=== PATIENT | female | born 2000 | race Caucasian/White ===

== ENCOUNTER 2019-08-13 18:28 | Emergency (ER) | payer MEDICAID ==
[~2019-08-13] VITALS: Ht 157.5 cm; Wt 127.5 kg
[2019-08-13 21:25] VITALS: BP 135/60
--- NOTE | 2019-08-13 21:59 | PHYS DOC ---
Past History Past Medical History: No Pertinent History Adult General Chief Complaint Chief Complaint: TEST [facility] Patient is a 18-year-old female who presents to the emergency department for evaluation. She states she has no complaint except that she needs to confirm her . She states her LMP was mid-June, and she had 2 home tests over the past 2 days which were positive. However, she states that prior to her first she had some home tests which were positive and her initial tests in the doctor's office were negative. She does admit to some breast soreness, and generalized fatigue, but denies any abdominal pain, but does admit to some nausea. She has not had any vaginal bleeding or discharge. There are no alleviating or exacerbating factors to her symptoms. Review of Systems Review of Systems Constitutional: Denies fever or chills [] Eyes: Denies change in visual acuity, redness, or eye pain [] HENT: Denies nasal congestion or sore throat [] Respiratory: Denies cough or shortness of breath [] Cardiovascular: No additional information not addressed in HPI [] GI: Denies abdominal pain, nausea, vomiting, bloody stools or diarrhea [] : Denies dysuria or hematuria, vaginal bleeding or discharge. [] Musculoskeletal: Denies back pain or joint pain [] Integument: Denies rash or skin lesions [] Neurologic: Denies headache, focal weakness or sensory changes [] Physical Exam Physical Exam PHYSICAL EXAM: CONSTITUTIONAL: Well developed, well nourished HEAD: normocephalic, atraumatic EENT: PERRL, EOMI. Conjunctivae normal color, sclerae non-icteric; moist mucous membranes. NECK: Supple, non-tender; no meningismus. LUNGS: Lungs CTA, breathing even and unlabored. Normal air movement. HEART: Regular rate and rhythm, no murmur CHEST: No deformity; non-tender ABDOMEN: The abdomen is soft, and non-tender, no masses or bruits. EXTREM: Normal ROM; no deformity, no calf tenderness. Normal pulses palpable in all extremities. There is no pedal edema. SKIN: No rash; no diaphoresis NEURO: Alert; normal speech and cognition; CN's grossly intact; strength grossly intact without focal deficit. BACK: No CVA TTP. Current Patient Data Lab Results Laboratory Tests Test 08/13/19 21:24 08/13/19 22:00 Bedside Urine HCG, Qualitative hcg negative Serum Test, Qualitative Negative Laboratory Tests Test 08/13/19 21:24 POC Urine HCG, Qualitative hcg negative (Negative) EKG EKG [] Radiology/Procedures Radiology/Procedures [] Course & Med Decision Making Course & Med Decision Making Initial urine test is negative. Given the patient's stated history, I do question a false negative, and a blood test will be performed. Dragon Disclaimer Dragon Disclaimer This electronic medical record was generated, in whole or in part, using a voice recognition dictation system. Departure Departure: Impression: Primary Impression: Amenorrhea Disposition: HOME, SELF-CARE Condition: STABLE Additional Instructions: follw up with Dr Estrada, [employer], at [phone], for further evaluation and treatment. APPLE SELLERS MD Aug 13, 2019 21:59
[2019-08-13 22:26] LABS: PREG TEST PT QUAL NEGATIVE (NEG)
== END 2019-08-13 22:37 | disposition home or self-care (01) ==
LOC: ER 18:28
DX: N91.2 Amenorrhea, unspecified (principal); Z32.02 Encounter for pregnancy test, result negative
CPT/HCPCS: 81025; 84703; 99283

== ENCOUNTER 2020-02-12 18:58 | Emergency (ER) | payer OTHER, MEDICAID ==
[~2020-02-12] VITALS: Ht 157.5 cm; Wt 117.0 kg
--- NOTE | 2020-02-12 19:01 | PHYS DOC ---
Past History Past Medical History: No Pertinent History, Fibromyalgia Additional Past Medical Histor: RUPTURED DISKS, RIGHT HIP DISPLAGIA,PLANTAR FACAITIS Past Surgical History: Alcohol Use: Occasionally Drug Use: Marijuana General Adult HPI: HPI: ".. I got bad plantar fasciitis in my right foot... I have been to a senior designer... He gave me some pain meds but stated I probably need surgery in his right foot... He also had me wear this boot which I have been wearing at work.. But I was on my feet all day today at [employer].. " Patient is a 19 year old female who presents with above hx and complaints of exacerbation of Rt foot plantar fasciitis. Distal neurovascular is equal to left foot. Does have increased tenderness in the arch area medial side of the foot on palpation. Patient denies any recent ballistic type injury but has had prolonged standing at work. Patient requesting a work excuse until she can follow back up with her senior designer and pain meds. Patient is not driving herself. No history of immunosuppression. No travel recently outside the [place] area. Review of Systems: Review of Systems: Constitutional: Denies fever or chills Eyes: Denies change in visual acuity HENT: Denies nasal congestion or sore throat Respiratory: Denies cough or shortness of breath Cardiovascular: Denies chest pain or edema GI: Denies abdominal pain, nausea, vomiting, bloody stools or diarrhea : Denies dysuria Musculoskeletal: Complains of right foot plantar fasciitis Integument: Denies rash Neurologic: Denies headache, focal weakness or sensory changes Endocrine: Denies polyuria or polydipsia Lymphatic: Denies swollen glands Psychiatric: Denies depression or anxiety Heart Score: Risk Factors: Risk Factors: DM, Current or recent (<one month) smoker, HTN, HLP, family history of CAD, obesity. Risk Scores: Score 0 - 3: 2.5% MACE over next 6 weeks - Discharge Home Score 4 - 6: 20.3% MACE over next 6 weeks - Admit for Clinical Observation Score 7 - 10: 72.7% MACE over next 6 weeks - Early Invasive Strategies Family History: Family History: Noncontributory Current Medications: Current Meds: See nursing for home medications Allergies: Allergies: Allergies Coded Allergies Type Severity Reaction Last Updated Verified No Known Drug Allergies 08/14/19 No Physical Exam: PE: Constitutional: Moderate acute distress, non-toxic appearance. [] HENT: Normocephalic, atraumatic, bilateral external ears normal, oropharynx moist, no oral exudates, nose normal. [] Eyes: PERRLA, EOMI, conjunctiva normal, no discharge. [] Neck: Normal range of motion, no tenderness, supple, no stridor. [] Cardiovascular:Heart rate regular rhythm, no murmur [] Lungs & Thorax: Bilateral breath sounds clear to auscultation [] Abdomen: Bowel sounds normal, soft, no tenderness, no masses, no pulsatile masses. Obese. Old surgery scars Skin: Warm, dry, no erythema, no rash. [] Back: No tenderness, no CVA tenderness. [] Extremities: No tenderness, no cyanosis, no clubbing, ROM intact, no edema. [] Except the findings in right foot as per HPI Neurologic: Alert and oriented X 3, normal motor function, normal sensory function, no focal deficits noted. [] Psychologic: Affect anxious l, judgement normal, mood normal. [] EKG: EKG: [] Radiology/Procedures: Radiology/Procedures: [] Course & Med Decision Making: Course & Med Decision Making Pertinent Labs and Imaging studies reviewed. (See chart for details) Patient to wear her orthopedic boot. Patient to follow-up with her senior designer. Patient use ice packs as needed. Take Tylenol and ibuprofen for pain. The patient may take Vicoprofen up to 4 times a day for marked pain [] Impression: 1. Right foot plantar fasciitis-pain exacerbation Carlos Disclaimer: Carlos Disclaimer: This electronic medical record was generated, in whole or in part, using a voice recognition dictation system. Departure Departure: Disposition: HOME/RESIDENCE PRIOR TO ADM Condition: STABLE Referrals: PCP,NO (PCP) Scripts Hydrocodone/Ibuprofen (HYDROCODONE-IBUPROFEN 7.5-200 ) 1 Each Tablet 1 TAB PO PRN Q6HRS PRN for PAIN, #30 TAB 0 Refills Prov: NENITA COOK MD 02/12/20 Carlos Disclaimer This chart was dictated in whole or in part using Voice Recognition software in a busy, high-work load, and often noisy Emergency Department environment. It may contain unintended and wholly unrecognized errors or omissions. NENITA COOK MD Feb 12, 2020 19:01
[2020-02-12 19:42] LABS: BARBITURATES NEG (NEG); BENZODIAZEPINES NEG (NEG); CANNABINOIDS NEG (NEG); COCAINE NEG (NEG); METHADONE NEG (NEG); OPIATES NEG (NEG); PHENCYCLIDINE NEG (NEG)
[2020-02-12 19:43] LABS: BILIRUBIN,URINE NEG (NEG); CLARITY,URINE HAZY; COLOR,URINE YELLOW; GLUCOSE,URINE NEG (NEG); NITRITE,URINE NEG (NEG); UROBILINOGEN,URINE 0.2 mg/dL (0.2 mg/dL)
[2020-02-12 19:44] LABS: BACTERIA,URINE FEW /HPF (0-FEW); SQUAMOUS EPITHELIAL CELL,UR MOD /LPF
[2020-02-12 19:45] LABS: AMPHETAMINE/METHAMPHETAMINE NEG (NEG)
[2020-02-12] MEDS ORDERED: HYDR-1179 PO (19:46)
== END 2020-02-12 19:55 | disposition home or self-care (01) ==
LOC: ER 18:58
DX: M72.2 Plantar fascial fibromatosis (principal); M79.671 Pain in right foot; M79.7 Fibromyalgia
CPT/HCPCS: 36415; 80307; 81001; 81025; 99283

== ENCOUNTER 2021-01-26 21:03 | Emergency (ER) | payer OTHER, MEDICAID ==
[~2021-01-26] VITALS: Ht 157.5 cm; Wt 112.0 kg
[~2021-01-26 21:03] MED LIST: HYDR-1179 PO
--- NOTE | 2021-01-26 21:05 | PHYS DOC ---
Past History Past Medical History: No Pertinent History, Fibromyalgia Additional Past Medical Histor: RUPTURED DISKS, RIGHT HIP DISPLAGIA,PLANTAR FASCIITIS Past Surgical History: Past Surgical History Complicated with excessive bleeding Alcohol Use: Occasionally Drug Use: Marijuana General Adult HPI: HPI: " I ve had back pain for ever.. it just seems worse tonight... " Patient is a 20 year old female who presents with above hx and complaints of mid back and bilateral sciatic pain.. Patient has a past history of somewhat chronic sciatica and back pain. No specific injury. No history of recent injury. No history of travel. No history of fever or chills. No history of problems with defecation or urination. Patient has had previous evaluations which did not show specific etiology. Patient denies any history immunosuppression. Pain is worse with flexion and [id number] movements. Psych affect pain is elicited with straight leg lifts. Pt. follows with Dr. Garg as primary. Review of Systems: Review of Systems: Constitutional: Denies fever or chills Eyes: Denies change in visual acuity HENT: Denies nasal congestion or sore throat Respiratory: Denies cough or shortness of breath Cardiovascular: Denies chest pain or edema GI: Denies abdominal pain, nausea, vomiting, bloody stools or diarrhea : Denies dysuria Musculoskeletal: Complaints exacerbation of chronic back pain and bilateral hip joint pain and/or sciatica Integument: Denies rash Neurologic: Denies headache, focal weakness or sensory changes Endocrine: Denies polyuria or polydipsia Lymphatic: Denies swollen glands Psychiatric: Denies depression or anxiety Family History: Family History: Noncontributory to presentation Current Medications: Current Meds: See nursing for home meds Allergies: Allergies: Allergies Coded Allergies Type Severity Reaction Last Updated Verified No Known Drug Allergies 08/14/19 No Physical Exam: PE: Constitutional: Moderate acute distress, non-toxic appearance. [] HENT: Normocephalic, atraumatic, bilateral external ears normal, oropharynx moist, no oral exudates, nose normal. [] Eyes: PERRLA, EOMI, conjunctiva normal, no discharge. [] Neck: Normal range of motion, no tenderness, supple, no stridor. [] Cardiovascular:Heart rate regular rhythm, no murmur [] Lungs & Thorax: Bilateral breath sounds clear to auscultation [] Abdomen: Bowel sounds normal, soft, no tenderness, no masses, no pulsatile masses. Obese. Old surgical scar Skin: Warm, dry, no erythema, no rash. [] Back: Mid back at T12/L1 tenderness, no CVA tenderness. Does have findings of muscle spasm on paraspinal area. No midline tenderness to percussion. Straight leg lift exacerbates low back pain. Extremities: No tenderness, no cyanosis, no clubbing, ROM intact, no edema. [] Neurologic: Alert and oriented X 3, normal motor function, normal sensory function, no focal deficits noted. DTRs +2 patella and brachial. Fusing Machine Operator equal. Is ambulatory. Psychologic: Affect anxious, judgement normal, mood normal. [] EKG: EKG: [] Radiology/Procedures: Radiology/Procedures: [][address] [address] IMAGING REPORT Signed PATIENT: REYNOLD ENCARNACION ACCOUNT: [id number] : 2000 LOCATION: ER AGE: 20 SEX: F EXAM STATUS: REG ER ORD. PHYSICIAN: NENITA COOK MD REASON: severe intractable pain PROCEDURE: CT THORACIC SPINE WO CONTRAST Exam: CT the thoracic and lumbar spine without contrast INDICATION: Severe intractable pain TECHNIQUE: Sequential axial images through the thoracic and lumbar spine obtained without IV contrast. Sagittal and coronal reformatted images were reconstructed from the axial data and reviewed. Comparisons: None FINDINGS: Thoracic spine: Vertebral body heights and alignment are well-maintained. Fracture to the thoracic spine is not identified. No significant spondylotic change in the thoracic spine. Visualized paraspinal soft tissues are unremarkable. Lumbar spine: Vertebral body heights and alignment are well-maintained. Fracture to the lumbar spine is not identified. No significant spondylotic change in the lumbar spine. Visualized paraspinal soft tissues are unremarkable. IMPRESSION: 1. Negative CT thoracic spine for acute traumatic injury. 2. Negative CT lumbar spine for acute traumatic injury. 3. No significant spondylotic change identified in the thoracic and lumbar spine Exposure: One or more of the following in the visualized dose reduction techniques were utilized for this examination: 1. Automated exposure control 2. Adjustment of the MA and/or KV according to patient size 3. Use of iterative of reconstructive technique Electronically signed by: Aidan Garza MD (01/26/2021 10:36 PM) [facility] [place] Heart Score: C/O Chest Pain: N/A Risk Factors: Risk Factors: DM, Current or recent (<one month) smoker, HTN, HLP, family history of CAD, obesity. Risk Scores: Score 0 - 3: 2.5% MACE over next 6 weeks - Discharge Home Score 4 - 6: 20.3% MACE over next 6 weeks - Admit for Clinical Observation Score 7 - 10: 72.7% MACE over next 6 weeks - Early Invasive Strategies Course & Med Decision Making: Course & Med Decision Making Pertinent Labs and Imaging studies reviewed. (See chart for details) Consider use of lidocaine patches. May be a candidate for physical therapy. No acute surgical processes appreciated on CT of the spine tonight. Take Tylenol and ibuprofen for pain. For marked pain may take Vicoprofen up to 4 times a day. Take Flexeril 10 mg up to 3 times a day for muscle spasms. Follow-up primary care. Review ED work-up. Impression: 1. Exacerbation of chronic back pain 2. Sciatica [] Carlos Disclaimer: Carlos Disclaimer: This electronic medical record was generated, in whole or in part, using a voice recognition dictation system. Departure Departure: Referrals: ILENE GARG (PCP) Scripts Lidocaine/Menthol (LIDOPATCH) 1 Each Adh..patch 1 MOE TP BID for back pain for 30 Days, #60 EACH 0 Refills Prov: NENITA COOK MD 01/26/21 Cyclobenzaprine Hcl (CYCLOBENZAPRINE HCL) 10 Mg Tablet 10 MG PO TID PRN for spams, #30 TAB Prov: NENITA COOK MD 01/26/21 Hydrocodone/Ibuprofen (HYDROCODONE-IBUPROFEN 7.5-200 ) 1 Each Tablet 1 TAB PO PRN Q6HRS PRN for PAIN, #30 TAB 0 Refills Prov: NENITA COOK MD 01/26/21 NENITA COOK MD Jan 26, 2021 21:05
[2021-01-26] MEDS ORDERED: MORPHINE SULFATE 10 MG/ML SYRINGE. SQ ONE (21:45)
[2021-01-26] MEDS ORDERED: ORPHENADRINE CITRATE 60 MG/2 ML VIAL. IM ONE (21:45)
[2021-01-26] MEDS ORDERED: KETOROLAC 60 MG/2 ML VIAL. IM ONE (21:45)
[2021-01-26 22:26] LABS: BARBITURATES NEG (NEG); BENZODIAZEPINES NEG (NEG); CANNABINOIDS POS (NEG); COCAINE NEG (NEG); METHADONE NEG (NEG); OPIATES NEG (NEG); PHENCYCLIDINE NEG (NEG)
[2021-01-26 22:29] LABS: BACTERIA,URINE FEW /HPF (0-FEW); BILIRUBIN,URINE NEG (NEG); CLARITY,URINE TURBID; COLOR,URINE YELLOW; GLUCOSE,URINE NEG (NEG); NITRITE,URINE NEG (NEG); SQUAMOUS EPITHELIAL CELL,UR MOD /LPF; UROBILINOGEN,URINE 0.2 mg/dL (0.2 mg/dL)
[2021-01-26 22:30] LABS: AMPHETAMINE/METHAMPHETAMINE NEG (NEG)
--- NOTE | 2021-01-26 22:38 | RAD ---
Exam: CT the thoracic and lumbar spine without contrast INDICATION: Severe intractable pain TECHNIQUE: Sequential axial images through the thoracic and lumbar spine obtained without IV contrast . Sagittal and coronal reformatted images were reconstructed from the axial data and reviewed. Comparisons: None FINDINGS: Thoracic spine: Vertebral body heights and alignment are well-maintained. Fracture to the thoracic spine is not identified. No significant spondylotic change in the thoracic spine. Visualized paraspinal soft tissues are unremarkable. Lumbar spine: Vertebral body heights and alignment are well-maintained. Fracture to the lumbar spine is not identified. No significant spondylotic change in the lumbar spine. Visualized paraspinal soft tissues are unremarkable. IMPRESSION: 1. Negative CT thoracic spine for acute traumatic injury. 2. Negative CT lumbar spine for acute traumatic injury. 3. No significant spondylotic change identified in the thoracic and lumbar spine Exposure: One or more of the following in the visualized dose reduction techniques were utilized for this examination: 1. Automated exposure control 2. Adjustment of the MA and/or KV according to patient size 3. Use of iterative of reconstructive technique Electronically signed by: Aidan Garza MD (01/26/2021 10:36 PM) [facility]
[2021-01-26] MEDS ORDERED: HYDR-1179 PO (23:45)
[2021-01-26] MEDS ORDERED: CYCL-331 PO (23:45)
[2021-01-26] MEDS ORDERED: LIDO1ADH TP (23:45)
[2021-01-27 00:05] VITALS: BP 107/88
[2021-01-27] MEDS ORDERED: ONDA4TAB12 PO (12:27)
== END 2021-01-27 00:05 | disposition home or self-care (01) ==
LOC: ER 21:03
DX: G89.29 Other chronic pain (principal); M54.41 Lumbago with sciatica, right side; M54.42 Lumbago with sciatica, left side; M79.7 Fibromyalgia; F12.90 Cannabis use, unspecified, uncomplicated; Z98.890 Other specified postprocedural states
CPT/HCPCS: 36415; 72128; 72131; 80307; 81001; 81025; 96372; 99285; J1885; J2270; J2360

== ENCOUNTER 2021-01-27 10:21 | Emergency (ER) | payer OTHER, MEDICAID ==
[~2021-01-27] VITALS: Ht 157.5 cm; Wt 112.0 kg
[~2021-01-27 10:21] MED LIST changes: +CYCL-331 PO; +LIDO1ADH TP
[2021-01-27] MEDS ORDERED: FAMOTIDINE 20 MG/2 ML VIAL IVP ONE (10:45)
[2021-01-27] MEDS ORDERED: diphenhydrAMINE 50 MG/ML VIAL IVP ONE (10:45)
[2021-01-27] MEDS ORDERED: DEXAMETHASONE SOD PHOS 10 MG/ML VIAL. IVP ONE (10:45)
[2021-01-27] MEDS ORDERED: ONDANSETRON PF 4 MG/2 ML VIAL. IVP ONE (10:45)
[2021-01-27] MEDS ORDERED: IV NORMAL SALINE 1,000ML 1,000 ML IV ONE (11:15)
--- NOTE | 2021-01-27 11:46 | PHYS DOC ---
Past History Past Medical History: Anxiety, Asthma, Depression, Fibromyalgia, Migraines Additional Past Medical Histor: RUPTURED DISKS, RIGHT HIP DISPLAGIA,PLANTAR FASCIITIS Past Surgical History: Alcohol Use: None Drug Use: Marijuana General Adult EDM: Chief Complaint: NAUSEA/VOMITING/DIARRHEA HPI: HPI: 20-year-old female past medical history of anxiety depression, asthma, fibromyalgia, sciatica with chronic hip and back pain, and Covid in November 2020 presents the ED with her stepmother (consents to her presents/medical knowledge of patient's ED encounter) complaints of nonbloody nonbilious vomiting that started around 2 AM after patient was discharged from the hospital around midnight. Patient reports she was given IM Norflex, Toradol and and morphine sulfate -has never had the Norflex or morphine prior. Reports she is tolerating oxycodone and hydrocodone without any nausea or vomiting in the past. States she tried sips of water around 8 AM and cannot keep anything down. Reports she smokes marijuana daily for her chronic pain. Is not had a primary care physician over 2 years. Has a PCP appointment with Dr. Salas in the next few weeks. Is on Cymbalta by her psychiatrist. States her biological mother has had a history of hives, facial swelling and nausea and vomiting from morphine and is concerned she might have similar allergic reaction. Took Benadryl prior to ED arrival. Reports no associated rash, head or neck s welling, difficulties breathing, drooling or speech changes, abdominal or back pain, difficulties breathing or hemoptysis. Was prescribed Flexeril, hydrocodone and lidocaine patches-has not refilled these medications. Denies any new characteristics to her chronic hip and back pain. Has not been seen by an PROGRAM PRODUCTION SPECIALIST to be evaluated for endometriosis. Patient with no past history of anaphylaxis, angioedema or allergic reactions requiring steroids. Review of Systems: Review of Systems: Constitutional: Denies fever or chills Eyes: Denies change in visual acuity HENT: Denies nasal congestion or sore throat Respiratory: Denies cough or shortness of breath Cardiovascular: Denies chest pain or edema GI: Denies abdominal pain, bloody stools or diarrhea : Denies dysuria, vaginal bleeding, urinary or bowel retention or incontinence Musculoskeletal: Denies new back pain, saddle anesthesia, joint pain or swelling, Integument: Denies rash or diaphoresis Neurologic: Denies headache, focal weakness or sensory changes Endocrine: Denies polyuria or polydipsia Lymphatic: Denies swollen glands Psychiatric: Denies depression or anxiety Current Medications: Current Meds: Current Medications Medications (Trade) Dose Ordered Sig/Oliverio Start Time Stop Time Status Last Admin Dose Admin Dexamethasone Sodium Phosphate (Decadron) 10 mg 1X ONCE 01/27/21 10:45 01/27/21 10:46 DC 01/27/21 11:15 10 MG Diphenhydramine HCl (Benadryl) 25 mg 1X ONCE 01/27/21 10:45 01/27/21 10:46 DC 01/27/21 11:16 25 MG Famotidine (Pepcid Vial) 20 mg 1X ONCE 01/27/21 10:45 01/27/21 10:46 DC 01/27/21 11:15 20 MG Ondansetron HCl (Zofran) 4 mg 1X ONCE 01/27/21 10:45 01/27/21 10:46 DC 01/27/21 11:15 4 MG Sodium Chloride 1,000 ml @ 1,000 mls/hr 1X ONCE 01/27/21 11:15 01/27/21 12:14 01/27/21 11:15 1,000 MLS/HR Allergies: Allergies: Allergies Coded Allergies Type Severity Reaction Last Updated Verified No Known Drug Allergies 08/14/19 No Physical Exam: PE: Constitutional: Well developed, well nourished, no acute distress, non-toxic appearance. HENT: Normocephalic, atraumatic, dry mucous membranes, patent oropharynx with no edema, Eyes: EOMI, conjunctiva normal, no discharge. Neck: Normal range of motion, supple, Cardiovascular: S1/2 present, regular rhythm Lungs & Thorax: Speaking in full sentences, bilateral equal chest rise, no tachypnea or increased work of breathing Abdomen: soft, no tenderness, no guarding/peritonitis/rigidity Skin: Warm, dry, no erythema, no rash/urticaria Extremities: no cyanosis, no lower extremity edema Neurologic: Alert and oriented X 3, normal motor function, normal sensory function, no focal deficits noted. [] Psychologic: Affect normal, judgement normal, mood normal. [] Current Patient Data: Vital Signs: Vital Signs Date Time Temp Pulse Resp B/P (MAP) Pulse Ox O2 Delivery O2 Flow Rate FiO2 3/26/21 10:27 98.0 82 16 129/81 (97) 98 Room Air EKG: EKG: [] Radiology/Procedures: Radiology/Procedures: [] Heart Score: C/O Chest Pain: No Risk Factors: Risk Factors: DM, Current or recent (<one month) smoker, HTN, HLP, family history of CAD, obesity. Risk Scores: Score 0 - 3: 2.5% MACE over next 6 weeks - Discharge Home Score 4 - 6: 20.3% MACE over next 6 weeks - Admit for Clinical Observation Score 7 - 10: 72.7% MACE over next 6 weeks - Early Invasive Strategies Course & Med Decision Making: Course & Med Decision Making Pertinent Labs and Imaging studies reviewed. (See chart for details) Patient presents to the ED with complaints of nausea and nonbloody nonbilious vomiting in the setting of no abdominal pain. Etiology could be multifactorial including marijuana use, medication adverse effect of morphine, persistent chronic pain, viral illness, doubt allergic reaction but will treat for such in the ED. Patient requested IV fluids and antiemetics. No angioedema, anaphylaxis or urticaria on exam, is protecting her airway. Recent labs and urinalysis within the past 24 hours, test negative. Upon reev aluation, patient with no further nausea vomiting, tolerating sips of water. Will DC home with antiemetics. Will discharge home with strict ED return precautions were given for difficulties breathing, head or neck swelling, rash, drooling, speech changes, or intractable nausea and vomiting. Encouraged urgent outpatient follow-up with PMD and blood bank coordinator as needed. Life-threatening processes were considered but are low suspicion at this time, given history, physical exam and ED workup. Pt was educated on all prescription medications and adverse effects. All patient's questions were answered and pt was stable at time of discharge. Life/limb-threatening differential includes but is not limited to, acute coronary syndrome/myocardial infarction, Boerhaave's, DKA, intracranial hemorrhage, ischemic bowel, meningitis, sepsis, surgical abdomen (AAA), toxidrome (drug over/overdose/carbon monoxide, etc), ovarian/testicular torsion, trauma, or infection/sepsis. I spoken with the patient and her caregivers. I explained the patient's condition, diagnoses and treatment plan based on the information available to me at this time. I have answered the patient and her caregiver's questions and addressed any concerns. The patient and her caregivers have a good understanding of patient's diagnosis, condition and treatment plan as can be expected at this point. Vital signs have been stable. Patient's condition is stable and appropriate for discharge from the emergency department. Patient will pursue further outpatient evaluation with primary care physician or other designated or consulting physician as outlined in the discharge instructions. The patient and/or caregivers are agreeable to this plan of care and follow-up instructions have been explained in detail. The patient and/or caregivers have received these instructions in written form and have expressed an understanding of the discharge instructions. The patient and/or caregivers are aware that any significant change of condition or worsening of symptoms should prompt immediate return to this or the closest emergency department or call to 1. Carlos Disclaimer: Carlos Disclaimer: This electronic medical record was generated, in whole or in part, using a voice recognition dictation system. Departure Departure: Impression: Primary Impression: Nausea & vomiting Additional Impression: Medication adverse effect Disposition: 01 DC HOME SELF CARE/HOMELESS Condition: STABLE Referrals: KIMMIE HERNANDEZ PAC (PCP) in 2-3 days for re-evaluation Patient Instructions: Nausea and Vomiting Additional Instructions: [facility] Call for appointment [phone] [facility] on the [address], [address] (Address for directions and navigation systems: [address] [place] [address]) EMERGENCY DEPARTMENT GENERAL DISCHARGE INSTRUCTIONS Thank you for coming to [facility] (ED) today and trusting us with you care. We trust that you had a positivie experience in our Emergency Department. If you wish to speak to the department management, you may call the director at [phone]. YOUR FOLLOW UP INSTRUCTIONS ARE FOLLOWS: 1. Do you have a private Doctor? If you do not have a private doctor, please ask for a resource list of physicians or clinics that may be able to assist you with follow up care. 2. The Emergency Physician has interpreted your x-rays. The X-Ray specialist will also review them. If there is a change in the findings, you will be notified in 48 hours when at all possible. 3. A lab test or culture has been done, your results will be reviewed and you will be notified if you need a change in treatment. ADDITIONAL INSTRUCTIONS AND INFORMATION: 1. Your care today has been supervised by a physician who is specially trained in emergency care. Many problems require more than one evaluation for a complete diagnosis and treatment. We recommend that you schedule your follow up appointment as recommended to ensure complete treatment of you illness or injury. If you are unable to obtain follow up care and continue to have a problem, or if your condition worsens, we recommend that you return to the ED. 2. We are not able to safely determine your condition over the phone nor are we able to give sound medical advice over the phone. For these safety reasons, if you call for medical advice we will ask you to come to the ED for further evaluation. 3. If you have any questions regarding these discharge instructions please call the ED at [phone]. SAFETY INFORMATION: In the interest of safety, wellness, and injury prevention; we encourage you to wear your sealbelt, if you smoke; quite smoking, and we encourage family to use a protective helmet for bicycling and other sporting events that present an increased risk for head injury. IF YOUR SYMPTOMS WORSEN OR NEW SYMPTOMS DEVELOP, OR YOU HAVE CONCERNS ABOUT YOUR CONDITION; OR IF YOUR CONDITION WORSENS WHILE YOU ARE WAITING FOR YOUR FOLLOW UP APPOINTMENT; EITHER CONTACT YOUR PRIMARY CARE DOCTOR, THE PHYSICIAN WHOSE NAME AND NUMBER YOU WERE GIVEN, OR RETURN TO THE ED IMMEDIATELY. Scripts Ondansetron (ONDANSETRON ODT) 4 Mg Tab.rapdis 4 MG PO Q6HRS for Nausea/Vomiting, #15 TAB Prov: JESUS MEJIA DO 01/27/21 JESUS MEJIA DO Jan 27, 2021 11:46
[2021-01-27] MEDS ORDERED: ONDA4TAB12 PO (12:27)
[2021-01-27 12:44] VITALS: BP 125/76
== END 2021-01-27 12:43 | disposition home or self-care (01) ==
LOC: ER 10:21
DX: R11.2 Nausea with vomiting, unspecified (principal); T42.8X5A Adverse effect of antiparkinsonism drugs and other central muscle-tone depressants, initial encounter; M54.5 Low back pain; R60.0 Localized edema; F41.9 Anxiety disorder, unspecified; J45.909 Unspecified asthma, uncomplicated; F32.9 Major depressive disorder, single episode, unspecified; M79.7 Fibromyalgia; G43.909 Migraine, unspecified, not intractable, without status migrainosus; F12.90 Cannabis use, unspecified, uncomplicated; Z98.890 Other specified postprocedural states; Y92.89 Other specified places as the place of occurrence of the external cause
CPT/HCPCS: 96361; 96374; 96375; 99284; J1100; J1200; J2405; J3490; J7030

== ENCOUNTER → 2021-04-19 | Outpatient (CLI) | payer OTHER, MEDICAID ==
[~2021-04-19] MED LIST changes: +ONDA4TAB12 PO
--- NOTE | 2021-04-19 14:24 | RAD ---
XR EXAM OF ANKLE_RIGHT 3VIEWS History: Reason: RIGHT ANKLE PAIN AND SWELLING ON LATERAL SIDE / Spl. Instructions: / History: Technique: 3 views right ankle Comparison: None. Findings: Normal alignment. No fracture. Mild right lateral ankle soft tissue swelling. Impression: 1. No acute osseous abnormality. Electronically signed by: Yobani Pretty DO (04/19/2021 2:21 PM) [id number]
== END ==
LOC: RAD 13:44
PROVIDERS: ATTEND Registered Nurse
DX: M25.571 Pain in right ankle and joints of right foot (principal); M79.89 Other specified soft tissue disorders
CPT/HCPCS: 73610

== ENCOUNTER 2021-08-17 18:27 | Emergency (ER) | payer MEDICAID, OTHER ==
[~2021-08-17] VITALS: Ht 157.5 cm; Wt 99.3 kg
[2021-08-17] MEDS ORDERED: IV NORMAL SALINE 1,000ML 1,000 ML IV ONE (19:00)
[2021-08-17] MEDS ORDERED: ONDANSETRON PF 4 MG/2 ML VIAL. IVP ONE (19:00)
--- NOTE | 2021-08-17 19:00 | PHYS DOC ---
Past History Past Medical History: Anxiety, Asthma, Depression, Fibromyalgia, Migraines Additional Past Medical Histor: RUPTURED DISKS, RIGHT HIP DISPLAGIA,PLANTAR FASCIITIS, ptsd,ocd Past Surgical History: Alcohol Use: None Drug Use: Marijuana Adult General Chief Complaint Chief Complaint: VOMITING IN [facility] HPI Patient is a 20 year old female who presents with nausea and vomiting while being 9 weeks . She is a normal thus far with her usual nausea and vomiting as she had during her first . She noticed today that during multiple episodes of vomiting there was small amount of blood streak in her vomitus and had called her OB physician who requested her to come to the ED. Patient denies any abdominal pain, any blood in the stool, dysuria, fever, chest or back pain. For last 2 days she has not been able to keep much down. She denies any visual disturbance or focal weakness or numbness. She denies any cough or shortness of breath. Review of Systems Review of Systems Constitutional: Denies fever or chills Eyes: Denies change in visual acuity, redness, or eye pain HENT: Denies nasal congestion or sore throat Respiratory: Denies cough or shortness of breath Cardiovascular: No additional information not addressed in HPI GI: Denies abdominal pain, has nausea and vomiting, no bloody stools or diarrhea : Denies dysuria or hematuria Musculoskeletal: Denies back pain or joint pain Integument: Denies rash or skin lesions Neurologic: Denies headache, focal weakness or sensory changes Endocrine: Denies polyuria or polydipsia All other systems were reviewed and found to be within normal limits, except as documented in this note. Current Medications Current Medications Current Medications Medications (Trade) Dose Ordered Sig/Oliverio Start Time Stop Time Status Last Admin Dose Admin Ondansetron HCl (Zofran) 4 mg 1X ONCE 08/17/21 19:00 08/17/21 19:01 UNV Sodium Chloride 1,000 ml @ 1,000 mls/hr 1X ONCE 08/17/21 19:00 08/17/21 19:59 UNV Allergies Allergies Allergies Coded Allergies Type Severity Reaction Last Updated Verified No Known Drug Allergies 08/14/19 No Physical Exam Physical Exam Constitutional: Well developed, well nourished, no acute distress, non-toxic appearance. HENT: Normocephalic, atraumatic, bilateral external ears normal, oropharynx moist, no oral exudates, nose normal. Eyes: PERRLA, EOMI, conjunctiva normal, no discharge. Neck: Normal range of motion, no tenderness, supple Cardiovascular:Heart rate regular rhythm, no murmur Lungs & Thorax: Bilateral breath sounds clear to auscultation Abdomen: Bowel sounds normal, soft, no tenderness, no masses, no pulsatile masses. Skin: Warm, dry, no erythema, no rash. Back: No tenderness, no CVA tenderness. Extremities: No tenderness, no cyanosis, no clubbing, ROM intact, no edema. Neurologic: Alert and oriented X 3, normal motor function, normal sensory function, no focal deficits noted. Psychologic: Affect normal, judgement normal, mood normal. Current Patient Data Vital Signs Vital Signs Date Time Temp Pulse Resp B/P (MAP) Pulse Ox O2 Delivery O2 Flow Rate FiO2 08/17/21 18:39 98.3 79 18 141/64 (89) 99 Room Air Lab Results Laboratory Tests Test 08/17/21 19:05 08/17/21 19:48 White Blood Count 6.9 x10^3/uL Red Blood Count 4.25 x10^6/uL Hemoglobin 13.1 g/dL Hematocrit 39.2 % Mean Corpuscular Volume 92 fL Mean Corpuscular Hemoglobin 31 pg Mean Corpuscular Hemoglobin Concent 33 g/dL Red Cell Distribution Width 12.3 % Platelet Count 277 x10^3/uL Neutrophils (%) (Auto) 67 % Lymphocytes (%) (Auto) 26 % Monocytes (%) (Auto) 6 % Eosinophils (%) (Auto) 1 % Basophils (%) (Auto) 0 % Neutrophils # (Auto) 4.6 x10^3uL Lymphocytes # (Auto) 1.8 x10^3/uL Monocytes # (Auto) 0.4 x10^3/uL Eosinophils # (Auto) 0.1 x10^3/uL Basophils # (Auto) 0.0 x10^3/uL Sodium Level 138 mmol/L Potassium Level 3.6 mmol/L Chloride Level 103 mmol/L Carbon Dioxide Level 23 mmol/L Anion Gap 12 Blood Urea Nitrogen 8 mg/dL Creatinine 0.5 mg/dL Estimated GFR (Cockcroft-Gault) 155.7 Glucose Level 77 mg/dL Calcium Level 9.2 mg/dL Urine Collection Type Unknown Urine Color Yellow Urine Clarity Cloudy Urine pH 6.0 Urine Specific [place] >=1.030 Urine Protein Trace Urine Glucose (UA) Neg mg/dL Urine Ketones (Stick) 80 mg/dL Urine Blood Neg Urine Nitrite Neg Urine Bilirubin Small Urine Urobilinogen Dipstick 0.2 mg/dL Urine Leukocyte Esterase Neg Urine RBC 0 /HPF Urine WBC 1-4 /HPF Urine Squamous Epithelial Cells Mod /LPF Urine Bacteria Mod /HPF Urine Mucus Slight /LPF Current Medications Medications (Trade) Dose Ordered Sig/Oliverio Route PRN Reason Start Time Stop Time Status Last Admin Dose Admin Ondansetron HCl (Zofran) 4 mg 1X ONCE IVP 08/17/21 19:00 08/17/21 19:03 DC 08/17/21 19:06 Sodium Chloride 1,000 ml @ 1,000 mls/hr 1X ONCE IV 08/17/21 19:00 08/17/21 19:59 DC 08/17/21 19:06 Dextrose/Sodium Chloride 1,000 ml @ 500 mls/hr 1X ONCE IV 08/17/21 20:00 08/17/21 21:59 08/17/21 19:59 EKG EKG [] Radiology/Procedures Radiology/Procedures [] Heart Score C/O Chest Pain: No Risk Factors: Risk Factors: DM, Current or recent (<one month) smoker, HTN, HLP, family history of CAD, obesity. Risk Scores: Risk Factors: DM, Current or recent (<one month) smoker, HTN, HLP, family history of CAD, obesity. Course & Med Decision Making Course & Med Decision Making Pertinent Labs and Imaging studies reviewed. (See chart for details) Patient had presented with symptoms consistent with hyperemesis gravidarum. She has had similar symptoms during 1st as well. She was started on IV hydration with normal saline 1 L and afterward received another liter of D5 normal saline. I discussed with her the use of antiemetic in 1st trimester and she understands the risk and benefit and chose to receive Zofran 4 mg intravenously. She had great relief in her nausea was able to tolerate liquid and wants to return home. Her laboratory studies including CBC electrolytes kidney functions and urine analysis are within normal limit. She is going to follow-up with her OB physician for continuous monitoring and treatment. Dragon Disclaimer Dragon Disclaimer This electronic medical record was generated, in whole or in part, using a voice recognition dictation system. Departure Departure: Impression: Primary Impression: Hyperemesis gravidarum Disposition: HOME / SELF CARE / HOMELESS Condition: IMPROVED Referrals: KIMMIE HERNANDEZ PAC (PCP) see your doctor 2-4 days Patient Instructions: Hyperemesis Gravidarum Additional Instructions: Please follow instructions as provided to you by OB physician and how best to manage nausea and vomiting of . DONALD WOLFE MD Aug 17, 2021 19:00
[2021-08-17 19:39] LABS: BASO % 0 % (0-3); EOS # 0.1 x10^3/uL (0.0-0.7); EOS % 1 % (0-3); HEMATOCRIT 39.2 % (36.0-47.0); HEMOGLOBIN 13.1 g/dL (12.0-15.5); LYMPH # 1.8 x10^3/uL (1.0-4.8); LYMPH % 26 % (24-48); MEAN CORPUSCULAR HEMOGLOBIN 31 pg (25-35); MEAN CORPUSCULAR HGB CONC 33 g/dL (31-37); MEAN CORPUSCULAR VOLUME 92 fL (79-100); MONO # 0.4 x10^3/uL (0.0-1.1); MONO % 6 % (0-9); NEUT # 4.6 x10^3uL (1.8-7.7); NEUT % 67 % (31-73); PLATELET COUNT 277 x10^3/uL (140-400); RED BLOOD COUNT 4.25 x10^6/uL (3.50-5.40); RED CELL DISTRIBUTION WIDTH 12.3 % (11.5-14.5); WHITE BLOOD COUNT 6.9 x10^3/uL (4.0-11.0)
[2021-08-17 19:40] LABS: CALCIUM 9.2 mg/dL (8.5-10.1); CREATININE 0.5 mg/dL (0.6-1.0); GFR 155.7; POTASSIUM 3.6 mmol/L (3.5-5.1)
[2021-08-17] MEDS ORDERED: IV DEXTROSE 5% - 0.9 % NACL 1,000 ML IV ONE (20:00)
[2021-08-17 20:36] LABS: BILIRUBIN,URINE SMALL (NEG); CLARITY,URINE CLOUDY; COLOR,URINE YELLOW; GLUCOSE,URINE NEG (NEG); NITRITE,URINE NEG (NEG); RBC,URINE 0 /HPF (0-2); UROBILINOGEN,URINE 0.2 mg/dL (0.2 mg/dL)
[2021-08-17 20:37] LABS: BACTERIA,URINE MOD /HPF (0-FEW); SQUAMOUS EPITHELIAL CELL,UR MOD /LPF
[2021-08-17 21:05] VITALS: BP 108/63
== END 2021-08-17 21:15 | disposition home or self-care (01) ==
LOC: ER 18:27
DX: O21.0 Mild hyperemesis gravidarum (principal); Z3A.09 9 weeks gestation of pregnancy
CPT/HCPCS: 36415; 80048; 81001; 85025; 87086; 96361; 96374; 99283; J2405; J7030; J7042

== ENCOUNTER 2021-11-14 06:29 | Emergency (ER) | payer MEDICAID ==
[~2021-11-14] VITALS: Ht 160 cm; Wt 100.7 kg
[~2021-11-14 06:29] MED LIST changes: -CYCL-331 PO; +CYCL10TA19 PO
[2021-11-14 06:34] VITALS: BP 118/78
--- NOTE | 2021-11-14 07:04 | PHYS DOC ---
Past History Past Medical History: Anxiety, Asthma, Depression, Fibromyalgia, Migraines Additional Past Medical Histor: RUPTURED DISKS, RIGHT HIP DISPLAGIA,PLANTAR FASCIITIS, ptsd,ocd Past Surgical History: Alcohol Use: None Drug Use: Marijuana General Adult EDM: Chief Complaint: MULTIPLE COMPLAINTS HPI: HPI: 20-year-old female who is G2, P1 22 weeks presents with shortness of breath. The patient was diagnosed positive COVID-19 6 days ago. She has been feeling more short of breath this morning. She called her OB and they had advised her to come in for evaluation. This is the second time the patient has had COVID-19. She also was fully vaccinated Moderna x2. She denies fevers or chills. Review of Systems: Review of Systems: Constitutional: Denies fever or chills Eyes: Denies change in visual acuity HENT: Denies nasal congestion or sore throat Respiratory: shortness of breath Cardiovascular: Denies chest pain or edema GI: Denies abdominal pain, nausea, vomiting, bloody stools or diarrhea : Denies dysuria Musculoskeletal: Denies back pain or joint pain Integument: Denies rash Neurologic: Denies headache, focal weakness or sensory changes Endocrine: Denies polyuria or polydipsia Lymphatic: Denies swollen glands Psychiatric: Denies depression or anxiety Allergies: Allergies: Allergies Coded Allergies Type Severity Reaction Last Updated Verified morphine Allergy Unknown 11/14/21 Yes Physical Exam: PE: Constitutional: Well developed, well nourished, no acute distress, non-toxic appearance. [] HENT: Normocephalic, atraumatic, bilateral external ears normal, oropharynx mois t, no oral exudates, nose normal. [] Eyes: PERRLA, EOMI, conjunctiva normal, no discharge. [] Neck: Normal range of motion, no tenderness, supple, no stridor. [] Cardiovascular: Heart rate 94, regular rhythm, no murmur [] Lungs & Thorax: Bilateral breath sounds clear to auscultation [] Abdomen: Bowel sounds normal, soft, no tenderness, no masses, no pulsatile masses. [] Skin: Warm, dry, no erythema, no rash. [] Back: No tenderness, no CVA tenderness. [] Extremities: No tenderness, no cyanosis, no clubbing, ROM intact, no edema. [] Neurologic: Alert and oriented X 3, normal motor function, normal sensory function, no focal deficits noted. [] Psychologic: Affect normal, judgement normal, mood anxious. [] Current Patient Data: Vital Signs: Vital Signs Date Time Temp Pulse Resp B/P (MAP) Pulse Ox O2 Delivery O2 Flow Rate FiO2 11/14/21 06:34 98.1 100 118/78 (91) 100 Room Air 11/14/21 06:34 24 EKG: EKG: [] Radiology/Procedures: Radiology/Procedures: [] Heart Score: C/O Chest Pain: N/A Risk Factors: Risk Factors: DM, Current or recent (<one month) smoker, HTN, HLP, family history of CAD, obesity. Risk Scores: Score 0 - 3: 2.5% MACE over next 6 weeks - Discharge Home Score 4 - 6: 20.3% MACE over next 6 weeks - Admit for Clinical Observation Score 7 - 10: 72.7% MACE over next 6 weeks - Early Invasive Strategies Course & Med Decision Making: Course & Med Decision Making Pertinent Labs and Imaging studies reviewed. (See chart for details) The patient was having some discomfort with breathing today and this made her nervous. She is reassured by her normal vital signs. Her OB has authorized low-dose aspirin for its antiplatelet effect. I have told the patient that if this was cleared by her OB that it would not be a bad idea for low level DVT/PE prophylaxis. The patient had no significant complications with her previous COVID 1 year ago. No complications from vaccination. I do not believe imaging is warranted at this time. The patient has a pulse oximeter at home. I advised that she consider using this to reassure herself. If her condition worsens anyway she is welcome to return to the emergency room or go to the hospital where she plans to deliver, [facility]. She is stable for discharge at this time. [] [place] Disclaimer: Carlos Disclaimer: This electronic medical record was generated, in whole or in part, using a voice recognition dictation system. Departure Departure: Impression: Primary Impression: COVID-19 Disposition: HOME / SELF CARE / HOMELESS Condition: STABLE Referrals: KIMMIE HERNANDEZ PAC (PCP) Patient Instructions: Shortness of Breath, [id number] Additional Instructions: You have been tested for or diagnosed with COVID-19. It is an infection caused by a new type of coronavirus. COVID-19 will cause cold-like or mild flu symptoms in most. It can cause more severe symptoms like problems breathing in some. There is no treatment for COVID-19. The body will clear the infection over time. Self-care will help to ease discomfort. Steps to Take: Self-Care Rest as needed. Healthy habits may help you feel better. Steps include: Choose healthy foods including fruits and vegetables. Drink water throughout the day. Get plenty of sleep each night. If you smoke, try to quit. It may ease breathing. Avoid alcohol. Keep Others Healthy The virus can spread to others. Droplets are released every time you sneeze or cough. The droplets can get into the mouth, nose, or eyes of people near you and lead to infection. To lower the chances of spreading COVID-19 to others: Stay at home until your doctor has said it is safe to leave. If you tested positive this will mean staying isolated until both of the following are true: At least 7 days have passed since the start of illness. You are free of fever for at least 72 hours without the use of medicine. During this time: - Avoid public areas, events, or transportation. Do not return to work or school until your doctor has said it is safe to do so. - Call ahead if you need to go to a medical center. Let them know you may have COVID-19. It will help them guide you where to go. They may also ask you to wear a facemask when you come to the office. - If you call for emergency medical services, let them know you may have COVID- 19. While at home: - Try to avoid close contact with others. Stay about 6 feet away. - If possible, spend most of your time in a separate room from others. - Use a face mask if you will be in close contact with others such as sharing a room or vehicle. - Have someone wipe down common surfaces in the home. Use household lending activities supervisor every day on areas like doorknobs, counters, or sinks. - Cough or sneeze into a tissue. Throw the tissue away right after use. If a tissue is not available, cough or sneeze into your elbow. - Wash your hands often. Wash them after sneezing or coughing. Use soap and water and wash for at least 20 seconds. Alcohol based hand final cleaner can be used if soap and water is not available. - Do not prepare food for others. Avoid sharing personal items like forks, spoons, or toothbrushes. - Avoid close contact with pets while you are sick. There is no evidence of the virus passing to pets. This is a safety step until more is known about this virus. Isolation can be frustrating. Social interaction can help. Keep in touch with friends and family through phone and tech options. You can still interact with others in your home, just keep a safe distance of about 6 feet. Follow-up: Your doctors office will check in with you to see if there are any changes in your health. You may be asked to keep track of symptoms to share with them. They will also let you know when you are clear to be in public again. Problems to Look Out For: Contact your doctor if your recovery is not going as you expect. Get emergency care if you have problems such as: - Trouble breathing - Nonstop chest pain or pressure - Changes in awareness, confusion, or problems waking - Lips or face have bluish color - Worsening of symptoms If you think you have an emergency, call for emergency medical services right a way. As taken from [facility] RENE SOLER DO Nov 14, 2021 07:04
== END 2021-11-14 07:27 | disposition home or self-care (01) ==
LOC: ER 06:29
DX: O98.512 Other viral diseases complicating pregnancy, second trimester (principal); U07.1 COVID-19; O99.512 Diseases of the respiratory system complicating pregnancy, second trimester; J45.909 Unspecified asthma, uncomplicated; G43.909 Migraine, unspecified, not intractable, without status migrainosus; M79.7 Fibromyalgia; Z3A.22 22 weeks gestation of pregnancy; Z88.5 Allergy status to narcotic agent
CPT/HCPCS: 99281